=== PATIENT | male | born 1995 ===

== ENCOUNTER 2016-10-28 18:08 | Emergency (ER) | payer BC ==
[2016-10-28 18:56] VITALS: BP 155/80
--- NOTE | 2016-10-28 19:57 | UC ---
Skin Complaint HPI - HPI Summary HPI Summary: redness, swelling itching under foreskin of penis. Girlfriend has vaginal yeast infection, has appt in 2d. He had this a few months ago, resolved with topical antifungal. No diabetes. No blisters. NOt painful - History of Current Complaint Chief Complaint: [facility] Time Seen by Provider: 10/28/16 19:46 Stated Complaint: PERSONAL Hx Obtained From: Patient Onset/Duration: Gradual Onset, Lasting Days - 4 Timing: Constant Onset Severity: Mild Current Severity: Mild Location: Other - penis foreskin Character: Pruritus, Redness Aggravating: Nothing Alleviating: Nothing Associated Signs & Symptoms: Positive: Rash - Allergy/Home Medications Allergies/Adverse Reactions: Allergies Allergy/AdvReac Type Severity Reaction Status Date / Time No Known Allergies Allergy Verified 10/28/16 18:56 Review of Systems Constitutional: Negative Skin: Rash Eyes: Negative ENT: Negative Respiratory: Negative Cardiovascular: Negative Gastrointestinal: Negative Genitourinary: Negative Motor: Negative Neurovascular: Negative Musculoskeletal: Negative Neurological: Negative Psychological: Negative All Other Systems Reviewed And Are Negative: Yes PMH/Surg Hx/FS Hx/Imm Hx Previously Healthy: Yes - Surgical History Surgical History: None - Family History Known Family History: Negative: Seizure Disorder - Social History Occupation: Student Lives: Alone - dorm Alcohol Use: Weekly Substance Use Type: None Smoking Status (MU): Former Smoker When Did the Patient Quit Smoking/Using Tobacco: ONE YR AGO Physical Exam Triage Information Reviewed: Yes Appearance: Well-Appearing, No Pain Distress, Well-Nourished Vital Signs: Initial Vital Signs Temp 99.3 F 10/28/16 18:51 Pulse 100 10/28/16 18:51 Resp 16 10/28/16 18:51 BP 155/80 10/28/16 18:51 Pulse Ox 100 10/28/16 18:51 Vital Signs Reviewed: Yes Eye Exam: Normal Respiratory Exam: Normal Cardiovascular Exam: Normal Musculoskeletal Exam: Normal Neurological Exam: Normal Psychological Exam: Normal Skin Exam: Other - reddened, eroded area under foreskin. Non-tender. No drainage Course/Dx - Diagnoses Provider Diagnoses: tinea cruris Discharge - Discharge Plan Condition: Stable Disposition: HOME Prescriptions: Fluconazole 150 MG (NF) [Diflucan 150 mg (NF)] 150 mg PO ONCE #2 tab Patient Education Materials: Philip Ann (ED) Additional Instructions: You can put anti-fungal cream on the area to help with itching, and help the rash resolve faster. Any of the [id number] itch creams are fine. Once your girlfriend has been treated and both of you are symptom-free, you can resume intercourse
== END 2016-10-28 20:06 | disposition home or self-care (01) ==
LOC: UCCORT 18:08
DX: B35.6 Tinea cruris (principal); Z87.891 Personal history of nicotine dependence
CPT/HCPCS: 87070; 87077; 99202; G0463